=== PATIENT | female | born 1960 | race Caucasian/White ===

== ENCOUNTER → 2023-08-03 | Outpatient (CLI) | payer BC | LOC: M RAD 09:03 | PROVIDERS: ATTEND Physician Assistant Medical | DX: J32.9 Chronic sinusitis, unspecified (principal) ==

== ENCOUNTER 2024-02-01 08:52 | Day surgery (SDC) | payer BC ==
[~2024-02-01] VITALS: Ht 157.5 cm; Wt 82.0 kg
[~2024-02-01 08:52] MED LIST: AZEL1SPR3; DEXL60CA13 PO; FLUTISP; LEXA1TAB2 PO; TRAZ-252 PO
[2024-02-01] MEDS ORDERED: LR 1,000 ML IV SCH ×2 (09:30→14:05)
[2024-02-01] MEDS ORDERED: ROCURONIUM BROMIDE 50MG/5ML VIAL As Ordered ONE (10:49)
[2024-02-01] MEDS ORDERED: ACETAMINOPHEN 1000MG 100ML IV BAG As Ordered ONE (10:49)
[2024-02-01] MEDS ORDERED: LACRILUBE (AKWA TEARS) OPHTH OINT 3.5GM As Ordered ONE (10:49)
[2024-02-01] MEDS ORDERED: LIDOCAINE 2% 100MG/5ML SDV (FOR ANES.) As Ordered ONE (10:49)
[2024-02-01] MEDS ORDERED: propofoL 200 MG/20 ML VIAL As Ordered ONE (10:49)
[2024-02-01] MEDS ORDERED: SUGAMMADEX SODIUM 500 MG/5 ML VIAL (BRIDION) As Ordered ONE (10:49)
[2024-02-01] MEDS ORDERED: ONDANSETRON 4MG 2ML VIAL As Ordered ONE (10:49)
[2024-02-01] MEDS ORDERED: fentaNYL 250 MCG/5 ML INJECTION As Ordered ONE (10:49)
[2024-02-01] MEDS ORDERED: MIDAZOLAM INJ 2MG/2ML VIAL As Ordered ONE (10:49)
[2024-02-01] MEDS ORDERED: dexmedeTOMIDine (4MCG/ML)200MCG/50ML BTL (PRECEDEX) As Ordered ONE (10:49)
[2024-02-01] MEDS ORDERED: LIDOCAINE W/EPINEPHRINE 1% 20ML VIAL As Ordered ONE (11:03)
[2024-02-01] MEDS ORDERED: hydrALAZINE 20MG/ML 1ML VIAL As Ordered ONE (13:06)
[2024-02-01] MEDS ORDERED: ESMOLOL INJ 100MG/10ML VIAL As Ordered ONE (13:23)
[2024-02-01] MEDS: EPINEPHrine 1MG/ML INJ 30ML MD-VIAL As Ordered ONE (13:40)
[2024-02-01] MEDS: LIDOCAINE 1% MDV 20ML VIAL As Ordered ONE (13:40)
[2024-02-01] MEDS: METHYLENE BLUE 0.5% (5MG/ML) 10 ML AMP (PROVAYBLUE) As Ordered ONE (13:40)
[2024-02-01] MEDS ORDERED: ONDANSETRON 4MG 2ML VIAL IV PRN (14:05)
[2024-02-01] MEDS: OXYMETAZOLINE 0.05% NASAL SPRAY (AFRIN) As Ordered ONE (14:26)
[2024-02-01] MEDS: fentaNYL 100 MCG/2 ML INJECTION IV PRN (15:12)
[2024-02-01 16:00] VITALS: BP 150/74; TEMP 97.8; O2SAT 98
== END 2024-02-01 16:13 | disposition home or self-care (01) ==
LOC: M SDC 08:52
PROVIDERS: ATTEND Otolaryngology
DX: J32.0 Chronic maxillary sinusitis (principal); J32.2 Chronic ethmoidal sinusitis; M19.90 Unspecified osteoarthritis, unspecified site; F41.9 Anxiety disorder, unspecified; F32.A Depression, unspecified; Z79.899 Other long term (current) drug therapy; Z88.2 Allergy status to sulfonamides
CPT/HCPCS: 31254; 31267; 61782; 88305; C2625; J0131; J0171; J0360; J1100; J1805; J2250; J2405; J3010; Q9968